=== PATIENT | female | born 1970 | race Caucasian/White ===

== ENCOUNTER → 2017-03-10 | Outpatient (CLI) | payer OTHER ==
[~2017-03-10] MED LIST: ESCITALOPRAM OX20 MG PO; EXTRA STRENGTH500 M1 PO; HYDROCODON-ACE1 EAC7 PO; VALIUM5 MG PO
[2017-03-10 16:08] LABS: APPEARANCE CLEAR/COLORLESS; RED CELL AREA COUNTED 18; RED CELL COUNT 3 /MM^3 (0-1); RED CELL DILUTION 1; WBC AREA COUNTED 18; WBC DILUTION 1; WHITE CELL COUNT 2 /MM^3 (0-5); WHITE CELL RAW COUNT 4
[2017-03-10 16:09] LABS: CSF EOSINOPHILS 0 % (0-25); MONONUCLEAR WBC'S 100 % (50-90); POLYNUCLEAR WBC'S 0 % (0-3)
[2017-03-15 02:05] LABS: IgG Index, CSF 0.52 index (<0.66); Synthesis Rate IgG, CSF -3.8 mg/24 h (-9.9-3.3)
== END | disposition home or self-care (01) ==
LOC: RAD 14:39
PROVIDERS: Physician Assistant
PROC: 009U3ZX Drainage of Spinal Canal, Percutaneous Approach, Diagnostic (ICD-10-PCS; principal; 2017-03-10)
DX: G37.9 Demyelinating disease of central nervous system, unspecified (principal)
CPT/HCPCS: 62270; 77003; 82040 90; 82042 90; 82784 90; 82945; 83873 90; 83916 90; 84157; 86617 90; 86618 90; 89051

== ENCOUNTER 2018-05-21 10:22 | Observation (INO) | payer OTHER ==
[~2018-05-21] VITALS: Ht 175.3 cm; Wt 77.6 kg
[2018-05-21] MEDS ORDERED: VYVANSE20 MG PO (11:04)
[2018-05-21 11:23] LABS: HEMATOCRIT 38.4 % (36.0-46.0); HEMOGLOBIN 13.1 G/DL (11.9-15.5); MCHC 34.1 G/DL (30.0-36.0); MCV 93.7 FL (83-99); PLATELET COUNT 296 K/uL (156-360); RBC DIS.WIDTH-CV 13.2 % (11.8-14.6); RBC DIS.WIDTH-SD 44.8 % (39-53); WHITE BLOOD COUNT 5.2 K/uL (4.1-10.2)
[2018-05-21 11:33] LABS: CHLORIDE 105 mEq/L (99-109); POTASSIUM 4.1 mEq/L (3.7-5.4); SODIUM 138 mEq/L (136-147)
[2018-05-21 11:34] LABS: GLUCOSE 121 mg/dL (70-99)
[2018-05-21 11:38] LABS: CREATININE 0.8 mg/dL (0.6-1.3); GFR ESTIMATE (CALCULATED) > 59 mL/min/
[2018-05-21 11:39] LABS: UREA NITROGEN (BUN) 14 mg/dL (9-23)
[2018-05-21] MEDS ORDERED: MAGNESIUM OXID500 MG PO (12:10)
[2018-05-21] MEDS ORDERED: VITAMIN B COMP1 EACH PO (12:11)
[2018-05-21] MEDS ORDERED: VITAMIN D2000 UNI1 PO (12:12)
[2018-05-21 14:48] VITALS: BP 134/80; BP 134/82; BP 138/78
[2018-05-21 20:14] VITALS: BP 114/67
[2018-05-22 00:13] VITALS: BP 100/60
[2018-05-22 04:12] VITALS: BP 90/53
[2018-05-22 07:39] VITALS: BP 105/64
[2018-05-22 11:17] VITALS: BP 107/69
[2018-05-22] MEDS ORDERED: PROMETHAZINE HC25 M1 PO (12:10)
[2018-05-22] MEDS ORDERED: ANTIVERT12.5 MG PO (12:10)
== END 2018-05-22 13:30 | disposition home or self-care (01) ==
LOC: EME 10:22 → EDOF 13:02 → 4SOUTH 13:02 → ENRESERV 13:12 → 4SOUTH 14:32
DX: R42 Dizziness and giddiness (principal); R11.0 Nausea; F41.9 Anxiety disorder, unspecified; F90.9 Attention-deficit hyperactivity disorder, unspecified type; Z80.1 Family history of malignant neoplasm of trachea, bronchus and lung; Z80.0 Family history of malignant neoplasm of digestive organs; Z82.3 Family history of stroke
CPT/HCPCS: 70450; 70551; 71046; 80048; 85027; 93005; 99281; 99285; G0378; G8978 GP CI; G8979 GP CH; G8980 GP CI; J1200; J1885; J2405; J7030; Q0169